=== PATIENT | female | born 1970 | race Caucasian/White ===

== ENCOUNTER 2018-09-21 16:52 | Emergency (ER) | END 2018-09-21 18:40 | disposition home or self-care (01) ==

== ENCOUNTER 2018-10-19 20:22 | Emergency (ER) | payer OTHER ==
[~2018-10-19] VITALS: Ht 152.4 cm; Wt 88.2 kg
[~2018-10-19 20:22] MED LIST: CYCL10TA7 PO; IBUP-1542 PO
[2018-10-19 21:09] VITALS: Ht 152.4 cm; Wt 88.2 kg
[2018-10-20] MEDS ORDERED: SOD CHLORIDE 0.9% 1,000 ML IV STA (00:03)
[2018-10-20] MEDS ORDERED: morphine 4 MG/ML VIAL IV STA (00:03)
[2018-10-20] MEDS ORDERED: ONDANSETRON 4 MG INJ IV STA (00:03)
[2018-10-20] MEDS ORDERED: ONDA4TAB14 PO (02:29)
[2018-10-20] MEDS ORDERED: IBUP-1542 PO (02:29)
--- NOTE | 2018-10-20 03:11 | ERD ---
ER Documentation Chief Complaint Chief Complaint epigastric pain w/flank x 3 days HPI Patient is a 47-year-old female with hypertension who presents with abdominal pain. She has abdominal pain, flank pain, and diarrhea. Started 3 days ago but it was worse today. When she eats she has diarrhea. She has no fevers. She has had no treatment as of yet. Upon review of old medical records the patient one previous visit to the ER on September 21, 2018 for headache. She does have a primary doctor. ROS All systems reviewed and are negative except as per history of present illness. Medications Home Meds Active Scripts Ondansetron (Ondansetron Odt) 4 Mg Tab.rapdis, 4 MG PO Q6H PRN for NAUSEA AND/OR VOMITING, #10 TAB Prov:ROSY BRANCH MD 10/20/18 Ibuprofen* (Motrin*) 600 Mg Tab, 600 MG PO Q6H PRN for PAIN AND OR ELEVATED TEMP, #30 TAB Prov:ROSY BRANCH MD 10/20/18 Cyclobenzaprine Hcl* (Cyclobenzaprine Hcl*) 10 Mg Tablet, 10 MG PO TID, #15 TAB Prov:FUENTES GUILLAUME MD 09/21/18 Ibuprofen* (Motrin*) 600 Mg Tab, 600 MG PO Q6, #20 TAB Prov:FUENTES GUILLAUME MD 09/21/18 Allergies Allergies: Coded Allergies: No Known Allergy (Unverified , 09/21/18) PMhx/Soc History of Surgery: Yes (cs delivery, ) Anesthesia Reaction: No Hx Neurological Disorder: No Hx Respiratory Disorders: No Hx Cardiac Disorders: No Hx Psychiatric Problems: No Hx Miscellaneous Medical Probl: No Hx Alcohol Use: No Hx Substance Use: No Hx Tobacco Use: No Smoking Status: Never smoker FmHx Family History: diabetes Physical Exam Vitals Vital Signs Date Temp Pulse Resp B/P (MAP) Pulse Ox O2 O2 Flow FiO2 Time Delivery Rate 10/20/18 98.4 60 18 116/72 98 Room Air 00:00 (87) 10/19/18 98.4 76 18 116/72 98 21:09 (87) Physical Exam Const: Anxious Head: Atraumatic Eyes: Normal Conjunctiva ENT: Normal External Ears, Nose and Mouth. Neck: Full range of motion. No meningismus. Resp: Clear to auscultation bilaterally Cardio: Regular rate and rhythm, no murmurs Abd: Soft, diffuse tenderness to palpation without rebound or guarding Skin: No petechiae or rashes Back: No midline or flank tenderness Ext: No cyanosis, or edema Neur: Awake and alert Psych: Anxious Result Diagram: 10/20/183910/20/1839 Results 24 hrs Laboratory Tests Test 10/20/18 00:40 White Blood Count 8.1 10^3/ul Red Blood Count 4.83 10^6/ul Hemoglobin 14.4 g/dl Hematocrit 43.0 % Mean Corpuscular Volume 89.0 fl Mean Corpuscular Hemoglobin 29.8 pg Mean Corpuscular Hemoglobin Concent 33.5 g/dl Red Cell Distribution Width 13.0 % Platelet Count 268 10^3/UL Mean Platelet Volume 10.5 fl Immature Granulocytes % 0.500 % Neutrophils % 52.1 % Lymphocytes % 35.3 % Monocytes % 9.7 % Eosinophils % 1.9 % Basophils % 0.5 % Nucleated Red Blood Cells % 0.0 /100WBC Immature Granulocytes # 0.040 10^3/ul Neutrophils # 4.2 10^3/ul Lymphocytes # 2.9 10^3/ul Monocytes # 0.8 10^3/ul Eosinophils # 0.2 10^3/ul Basophils # 0.0 10^3/ul Nucleated Red Blood Cells # 0.0 10^3/ul Urine Color COLORLESS Urine Clarity CLEAR Urine pH 6.0 Urine Specific [place] 1.003 Urine Ketones NEGATIVE mg/dL Urine Nitrite NEGATIVE mg/dL Urine Bilirubin NEGATIVE mg/dL Urine Urobilinogen NEGATIVE mg/dL Urine Leukocyte Esterase NEGATIVE Jenifer/ul Urine Hemoglobin NEGATIVE mg/dL Urine Glucose NEGATIVE mg/dL Urine Total Protein NEGATIVE mg/dl Sodium Level 142 mmol/L Potassium Level 3.7 mmol/L Chloride Level 106 mmol/L Carbon Dioxide Level 25 mmol/L Anion Gap 11 Blood Urea Nitrogen 11 mg/dl Creatinine 0.67 mg/dl Est Glomerular Filtrat Rate mL/min > 60 mL/min Glucose Level 87 mg/dl Calcium Level 9.2 mg/dl Total Bilirubin 0.1 mg/dl Direct Bilirubin 0.00 mg/dl Indirect Bilirubin 0.1 mg/dl Aspartate Amino Transf (AST/SGOT) 25 IU/L Alanine Aminotransferase (ALT/SGPT) 38 IU/L Alkaline Phosphatase 95 IU/L Total Protein 7.2 g/dl Albumin 4.1 g/dl Globulin 3.10 g/dl Albumin/Globulin Ratio 1.32 Lipase 129 U/L Current Medications Medications Dose Sig/Carlos Alberto Start Time Status Last (Trade) Ordered Route PRN Stop Time Admin Dose Reason Admin Sodium 1,000 ml @ Q1H STAT 10/20/18 DC 10/20/18 Chloride 1,000 mls/hr IV 00:03 10/20/18 01:33 01:02 Morphine 4 mg ONCE STAT 10/20/18 DC 10/20/18 Sulfate IV 00:03 10/20/18 01:33 (morphine) 00:04 Ondansetron 4 mg ONCE STAT 10/20/18 DC 10/20/18 HCl (Zofran IV 00:03 10/20/18 01:32 Inj) 00:04 Procedures/MDM CT abdomen pelvis read by radiology shows no acute surgical process. Ultrasound of the gallbladder read by radiology shows no signs of acute cholecystitis per radiology. Patient is a 47-year-old female who presents with abdominal pain, vomiting, and diarrhea. Laboratory studies were basically normal. CT scan and ultrasound showed no signs of surgical process. I believe outpatient management is appropriate at this time. The patient will need close follow-up with her primary doctor within 24 hours for reevaluation. Copy of the laboratory studies and imaging test were provided prior to discharge. Departure Diagnosis: Primary Impression: Abdominal pain Abdominal location: generalized Qualified Codes: R10.84 - Generalized abdominal pain Condition: Fair Patient Instructions: Abdominal Pain Referrals: Your doctor Additional Instructions: Llame al doctor MAANA y kevin yash MARLENI PARA DENTRO DE 1-2 COHN.Dgale a la secretaria que nosotros le instruimos hacer esta marleni.Avise o llame si banks condicin se empeora antes de la marleni. Regresa aqui si peor o no mejor. ROSY BRANCH MD Oct 20, 2018 03:11
[2018-10-20 03:29] VITALS: BP 118/70; PULSE 60; RESP 18
== END 2018-10-20 03:32 | disposition home or self-care (01) ==
LOC: E/R 20:22
DX: R10.84 Generalized abdominal pain (principal); R11.10 Vomiting, unspecified
CPT/HCPCS: 36415; 74176; 76705; 80053; 81003; 83690; 85025; 96374; 96375; J2270; J2405; J7030; Z7502